=== PATIENT | male | born 1965 | race Caucasian/White ===

== ENCOUNTER → 2018-04-21 09:02 | Outpatient (CLI) | payer OTHER, SELFPAY ==
[2018-04-21 09:51] LABS: Add Manual Diff / Slide Review NO; Basophils Percent Auto 1.1 % (0-2); Eosinophils Percent Auto 1.8 % (2-4); Hematocrit 43.8 % (41-53); Hemoglobin 15.3 g/dL (13.5-17.5); Mean Corpuscular HGB Conc 34.9 % (30-36); Mean Corpuscular Hemoglobin 31.2 PG (26-34); Mean Corpuscular Volume 89.5 fL (80-100); Monocytes Percent Auto 5.6 % (3-14); Neutrophils Absolute Auto 5200 /uL (3000-5900); Neutrophils Percent Auto 60.5 % (50-75); Platelet Count 249 X10^3/uL (150-400); Red Cell Distribution Width 13.3 % (11.6-14.8); White Blood Cell Count 8.6 X10^3/uL (4.5-11.0)
[2018-04-21 09:52] LABS: Alanine Aminotransferase 30 IU/L (21-72); Albumin 5.1 g/dL (3.5-5.0); Albumin Globulin Ratio 1.6 (1.0-2.8); Alkaline Phosphatase 59 U/L (38-126); Aspartate Aminotransferase 28 IU/L (17-59); BUN Creatinine Ratio 22.5 (6-22); Bilirubin Total 0.6 mg/dL (0.2-1.3); Blood Urea Nitrogen 18 mg/dL (9-20); Calcium 9.7 mg/dL (8.4-10.2); Carbon Dioxide 30 mmol/L (22-32); Chloride 98 mmol/L (98-107); Cholesterol 186 mg/dL (140-199); Estimated Glomerular Filt Rate > 60.0 mL/min (>60); Globulin 3.2 g/dL (1.7-4.1); Glucose 121 mg/dL (70-100); HDL Cholesterol 55 mg/dL (40-60); HEMOLYSIS < 15 (0-50); LDL Cholesterol Calculated 96 mg/dL (<100); Potassium 3.8 mmol/L (3.4-5.1); Sodium 146 mmol/L (137-145); Total Protein 8.3 g/dL (6.3-8.2); Triglycerides 175 mg/dL (35-150)
[2018-04-21 10:01] LABS: Hemoglobin A1C% w Est Avg Glu 6.9 % (4.0-6.0)
== END ==
PROVIDERS: PCP Internal Medicine Infectious Disease; Visit Provider Internal Medicine
DX: Z79.4 Long term (current) use of insulin (principal); E11.8 Type 2 diabetes mellitus with unspecified complications; I10 Essential (primary) hypertension
CPT/HCPCS: 36415; 80053; 80061; 83036; 85025

== ENCOUNTER 2019-12-22 05:40 | Observation (INO) | payer OTHER, SELFPAY ==
[2019-12-22] VITALS (13 sets, daily range): BP systolic 94–146; BP diastolic 38–77; PULSE 65–80; RESP 14–20; TEMP 36.3–37.3; O2SAT 94–100; BMI 36.3
--- NOTE | 2019-12-22 05:44 | ED_ITS ---
HPI - Syncope General Chief Complaint: Syncope Stated Complaint: lethargic, sweating passed out on 20 day fast Time Seen by Provider: 12/22/19 05:44 Source: patient and family Mode of arrival: Ambulatory Limitations: no limitations History of Present Illness HPI narrative: 54M non smoker with HTN presents with multiple near syncopal episodes over the past day or two. He denies any injury as a consequence of these near syncopal episodes. He states that he can feel them coming on and they often happen with change in position. He is 20 days in to a liquid fast for weight loss reasons and states that though he has done fasting before he has never been this strict. He states that he continues to take his medications as prescribed but has been getting some burning in his stomach which has made it harder to drink as much is his fasting plan calls for. He denies any chest pain or shortness of breath. He denies any abdominal pain or diarrhea. He states that he has been urinating less than normal. MD complaint: felt faint and almost passed out Onset (ago): day(s) Prodromal symptoms: lightheaded Injuries sustained associated with event: none Current symptoms: lightheaded Related Data Home Medications Medication Instructions Recorded Confirmed Lisinopril/HCTZ (PRINZIDE) 1 tab PO QDAY #0 12/10/12 amlodipine [Norvasc] 10 mg PO QDAY #0 12/10/12 gabapentin [Neurontin] 300 mg PO QID #0 12/10/12 glimepiride [Amaryl] 2 mg PO Q DAY #0 12/10/12 methocarbamol [Robaxin-750] 750 mg PO PRN #1 12/10/12 oxycodone-acetaminophen [Percocet] 2 tab PO Q4HP #0 12/10/12 phentermine 15 mg PO Q DAY #0 12/10/12 Allergies Allergy/AdvReac Type Severity Reaction Status Date / Time No Known Allergies Allergy Uncoded 02/14/18 11:57 Review of Systems Constitutional Constitutional: Denies chills, Denies fatigue, Denies fever(s), Denies frequent falls, Denies lethargy and Denies weakness Eyes Eyes: Denies change in vision, Denies eye discharge, Denies irritation and Denies loss of vision ENT Ears, Nose, Mouth, and Throat: Denies change in voice, Denies dizziness, Denies neck pain, Denies sore throat and Denies throat swelling Cardiovascular Cardiovascular: Denies chest pain, Denies irregular heart rhythm, Denies lightheadedness, Denies palpitations, Denies dyspnea, Denies dyspnea on exertion and Denies orthopnea Comments: Near syncope Respiratory Respiratory: Denies cough, Denies dyspnea, Denies dyspnea on exertion and Denies wheezing Gastrointestinal Gastrointestinal: Denies abdominal pain, Denies change in bowel habits, Denies diarrhea, Denies nausea and Denies vomiting Genitourinary Genitourinary: Denies hematuria, Denies flank pain, Denies urinary incontinence and Denies urinary urgency Musculoskeletal Musculoskeletal: Denies back pain, Denies muscle weakness, Denies neck pain, Denies numbness and Denies tingling Integumentary/Breasts Skin/Breast: Denies pruritus, Denies erythema, Denies rash and Denies wounds Neurologic Neurologic: Denies behavioral changes, Denies confusion, Denies dizziness, Denies frequent falls, Denies loss of vision, Denies numbness, Denies tingling and Denies weakness Psychiatric Psychiatric: Denies anxiety, Denies behavioral changes, Denies confusion, Denies depression, Denies homicidal ideation and Denies suicidal ideation Endocrine Endocrine: Denies fatigue, Denies flushing and Denies palpitations Hematologic/Lymphatic Hematologic/Lymphatic: Denies easy bruising Allergic/Immunologic Allergic/Immunologic: Denies urticaria, Denies throat swelling and Denies wheezing Exam Narrative Exam Narrative: GENERAL: [54] year old patient appears stated age. Well- nourished, well-developed patient, in mild distress. HEAD: Atraumatic. Normocephalic. EYES: Pupils equal round and reactive. Extraocular motions intact. No scleral icterus. No injection or drainage. ENT: Nose without bleeding, purulent drainage. Throat without erythema, tonsillar hypertrophy or exudate. Airway patent. NECK: Trachea midline. Non tender CARDIOVASCULAR: Regular rate and rhythm without murmurs, gallops, or rubs. RESPIRATORY: Clear to auscultation. Breath sounds equal bilaterally. No wheezes, rales, or rhonchi. GASTROINTESTINAL: Abdomen soft, non-tender, nondistended. EXTREMITIES: No edema or joint tenderness. BACK: Nontender without deformity or crepitance. No flank tenderness. NEURO: AOx3. SKIN: No rash or erythema of visible areas Initial Vital Signs Initial Vital Signs: Vital Signs Temperature 98.0 F 12/22/19 05:40 Pulse Rate 77 12/22/19 05:40 Respiratory Rate 16 12/22/19 05:40 Blood Pressure 99/52 L 12/22/19 05:40 Pulse Oximetry 98 12/22/19 05:40 Course Course Course Narrative: patient took own Morphine Sulfate 15mg PO and Gabapentin 600mg PO Orders Ordered: ED Orders 12/22/19 05:54 EKG-12 Lead Stat 12/22/19 05:55 Complete Blood Count AUTO DIFF Stat Comprehensive Metabolic Panel Stat Ketones (Beta-Hydroxybutyrate) Stat Magnesium Stat Potassium Chloride 80 meq/ (Sodium Chloride) 1,040 mls @ 130 mls/hr IV NOW ONE Stop: 12/22/19 14:30 Last Admin: 12/22/19 06:49 Dose: 130 mls/hr Documented by: ARVIND Cosigned by: PABLO Discontinued Medications Sodium Chloride (Normal Saline 0.9%) 1,000 mls @ 1,000 mls/hr IV BOLUS ONE Stop: 12/22/19 06:52 Last Admin: 12/22/19 06:32 Dose: 1,000 mls/hr Documented by: ARVIND Vital Signs Vital signs: Vital Signs - 8 hr 12/22/19 05:40 12/22/19 06:45 Temperature 98.0 F Pulse Rate 77 65 Respiratory Rate 16 15 Blood Pressure 99/52 L Blood Pressure [Right Arm] 94/53 L Pulse Oximetry 98 97 MDM - Syncope Lab Data Result diagrams: 12/22/19 05:55 12/22/19 05:55 Labs: Lab Results 12/22/19 12/22/19 12/22/19 Range/Units 05:55 05:55 05:55 WBC 8.7 (4.5-11.0) X10^3/uL RBC 5.17 (4.5-5.9) X10^6/uL Hgb 16.1 (13.5-17.5) g/dL Hct 42.6 (41-53) % MCV 82.4 (80-100) fL MCH 31.2 (26-34) PG MCHC 37.9 H (30-36) % RDW 12.4 (11.6-14.8) % Plt Count 239 (150-400) X10^3/uL Neut % (Auto) 69.5 (50-75) % Lymph % (Auto) 18.4 L (25-40) % [place] % (Auto) 11.5 (3-14) % Eos % (Auto) 0.3 L (2-4) % Baso % (Auto) 0.3 (0-2) % Neut # (Auto) 6000 (5002-2184) /uL Lymph # (Auto) 1600 (8488-1025) /uL [place] # (Auto) 1000 H (0-900) /uL Eos # (Auto) 0 (0-450) /uL Baso # (Auto) 0 (0-100) /uL Sodium 116 L* (137-145) mmol/L Potassium 2.3 L* (3.4-5.1) mmol/L Chloride 57 L* (98-107) mmol/L Carbon Dioxide 37 H (22-32) mmol/L BUN 10 (9-20) mg/dL Creatinine 1.40 H (0.66-1.25) mg/dL Estimated GFR 52.4 L (>60) mL/min BUN/Creatinine Ratio 7.1 (6-22) Glucose 155 H (70-100) mg/dL Calcium 9.1 (8.4-10.2) mg/dL Magnesium 1.6 (1.6-2.3) mg/dL Total Bilirubin 1.4 H (0.2-1.3) mg/dL AST 93 H (17-59) IU/L ALT 49 (<50) IU/L Alkaline Phosphatase 63 (38-126) U/L Total Protein 7.9 (6.3-8.2) g/dL Albumin 4.9 (3.5-5.0) g/dL Globulin 3.0 (1.7-4.1) g/dL Albumin/Globulin Ratio 1.6 (1.0-2.8) Ketones 7.44 H (<0.27) mmol/L Point of Care Testing Glucose POC 146 Discharge Plan Departure Patient Disposition: Admitted As Inpatient Clinical Impression: Dehydration, Acute kidney injury, Acute hypokalemia, Acute hyponatremia Referrals: Saqib Bonner DO [Primary Care Provider] - Admit Date/Time: 12/22/19 07:56 Admit Provider: Tika Duong
[2019-12-22 06:19] LABS: Alanine Aminotransferase 49 IU/L (<50); Albumin 4.9 g/dL (3.5-5.0); Albumin Globulin Ratio 1.6 (1.0-2.8); Alkaline Phosphatase 63 U/L (38-126); Aspartate Aminotransferase 93 IU/L (17-59); BUN Creatinine Ratio 7.1 (6-22); Bilirubin Total 1.4 mg/dL (0.2-1.3); Blood Urea Nitrogen 10 mg/dL (9-20); Calcium 9.1 mg/dL (8.4-10.2); Carbon Dioxide 37 mmol/L (22-32); Estimated Glomerular Filt Rate 52.4 mL/min (>60); Glucose 155 mg/dL (70-100); HEMOLYSIS 25 (0-50); Total Protein 7.9 g/dL (6.3-8.2)
[2019-12-22 06:29] LABS: Potassium 2.3 mmol/L (3.4-5.1); Sodium 116 mmol/L (137-145)
[2019-12-22 06:30] LABS: Chloride 57 mmol/L (98-107)
[2019-12-22 06:31] LABS: Ketones (Beta-Hydroxybutyrate) 7.44 mmol/L (<0.27)
[2019-12-22] MEDS: SODIUM CHLORIDE 0.9% 1,000 ML 1000 ML IV (06:32)
[2019-12-22] MEDS: POTASSIUM CHLORIDE 80 MEQ in SODIUM CHLORIDE 0.9% 1,000 ML 130 ML IV ×2 (06:49→20:40)
[2019-12-22 07:02] LABS: Add Manual Diff / Slide Review NO; Basophils Absolute Auto 0 /uL (0-100); Basophils Percent Auto 0.3 % (0-2); Eosinophils Absolute Auto 0 /uL (0-450); Eosinophils Percent Auto 0.3 % (2-4); Hematocrit 42.6 % (41-53); Hemoglobin 16.1 g/dL (13.5-17.5); Lymphocytes Absolute Auto 1600 /uL (1100-4500); Lymphocytes Percent Auto 18.4 % (25-40); Mean Corpuscular Hemoglobin 31.2 PG (26-34); Mean Corpuscular Volume 82.4 fL (80-100); Monocytes Absolute Auto 1000 /uL (0-900); Monocytes Percent Auto 11.5 % (3-14); Neutrophils Absolute Auto 6000 /uL (1500-7000); Neutrophils Percent Auto 69.5 % (50-75); Platelet Count 239 X10^3/uL (150-400); Red Blood Cell Count 5.17 X10^6/uL (4.5-5.9); Red Cell Distribution Width 12.4 % (11.6-14.8); White Blood Cell Count 8.7 X10^3/uL (4.5-11.0)
[2019-12-22 07:03] LABS: Mean Corpuscular HGB Conc 37.9 % (30-36)
[2019-12-22 07:49] LABS: Magnesium 1.6 mg/dL (1.6-2.3)
[2019-12-22 09:24] LABS: Hemoglobin A1C% w Est Avg Glu 9.3 % (4.0-6.0)
[2019-12-22] MEDS: HEPARIN 5,000 UNIT/ML VIAL 5000 UNIT SUBCUT ×2 (10:42→20:43)
[2019-12-22] MEDS: SODIUM CHLORIDE 0.9% 1,000 ML 100 ML IV (10:47)
--- NOTE | 2019-12-22 13:00 | PM.HP.1 ---
History of Present Illness History of Present Illness Date Patient Seen: 12/22/19 Chief complaint: lethargic, sweating passed out on 20 day fast Narrative: Booker Zimmerman is a 54-year-old male with past medical history significant for diabetes mellitus type 2, non-insulin using, hypertension and chronic back pain with opiate dependence and a back stimulator who presented to the ED for near syncopal episode. The patient reports he was getting ready for work and was just laying there on his bed not wanting to get up. He endorses fatigue and weakness. He then reports he got up then fell to the floor and was shaking because it ?felt better.? He denies any injury as a consequence of these near syncopal episodes. He denies bowel or bladder incontinence and he did not bite his tongue. The patient has been pursuing a liquid fast as part of a weight loss program for a competition at work. He has previously fasted in the past which he reports put his diabetes in remission. The patient reports he is not on any medications for his diabetes and has refused that he has diabetes to nursing staff. The patient denies headache, vision changes, lightheadedness or dizziness, palpitations, chest pain, shortness of breath, fever, chills, dysuria, diarrhea or constipation. He does endorse decreased urinary output and mild abdominal burning due to taking his medications on an empty stomach with associated nausea and 1 episode of vomiting last week. The patient reports that he has not had a BM since 12/02/2019. ED course: The patient was found to be dehydrated with acute kidney injury and severe hyponatremic (Na 116) and hypokalemic (K 2.3). The patient was admitted for rehydration and correction of electrolytes. Patient History Medical History (Updated 12/22/19 @ 16:47 by Tika Duong DO) Chronic back pain (Acute) Diabetes mellitus type 2 in obese (Acute) Hypertension (Acute) Opiate dependence (Acute) Surgical History (Updated 12/22/19 @ 16:47 by Tika Duong DO) History of appendectomy (Acute) History of lumbar fusion (Acute) Family & Social History Family History (Updated 12/22/19 @ 16:49 by Tika Duong DO) Mother Diabetes mellitus Heart disease Father Diabetes mellitus Heart disease Brother Diabetes mellitus Heart disease Hx of CABG Brother Lung cancer Sister Unknown family medical history Social History: household members spouse,children Prior Living Arrangements House Safety & Behavioral: Feels Safe in Current Yes Environment Been Physically Hurt or No Threatened By a Person Suicidal Ideation Description None Suicide Plan Description No Plan Tobacco & Substance use: Smoking Status Never smoker alcohol intake never The patient has been for 31 years. He has 2 biological children who are healthy. 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 He occasionally drinks alcohol such as a beer every 6 months. He is a former smoker 1 pack per day x6 years. He currently chews tobacco. He does not use any recreational drugs. Meds Home Medications and Allergies Home Medications Medication Instructions Recorded Confirmed Type amlodipine 5 mg PO DAILY 12/22/19 12/22/19 History gabapentin 600 mg PO TID 12/22/19 12/22/19 History hydrochlorothiazide 25 mg PO DAILY 12/22/19 12/22/19 History lisinopril 20 mg PO DAILY 12/22/19 12/22/19 History meloxicam 7.5 mg PO DAILY 12/22/19 12/22/19 History morphine 15 mg PO Q4-6H PRN 12/22/19 12/22/19 History tizanidine 4 mg Q3H 12/22/19 12/22/19 History Allergies Allergy/AdvReac Type Severity Reaction Status Date / Time No Known Drug Allergies Allergy Verified 12/22/19 09:22 Review of Systems Review of Systems Narrative: A 10 system comprehensive review of systems was conducted with the patient and found to be negative except as above in the History of Present Illness. Exam Vital Signs (past 8 hours): - 12/22/19 05:40 12/22/19 06:45 12/22/19 07:00 Temperature 98.0 F Pulse Rate 77 65 68 Respiratory Rate 16 15 14 Blood Pressure 99/52 L Blood Pressure [Right Arm] 94/53 L 109/52 L Pulse Oximetry 98 97 98 12/22/19 08:00 12/22/19 08:41 12/22/19 12:00 Temperature 97.4 F L 98.6 F Pulse Rate 73 71 72 Respiratory Rate 14 16 17 Blood Pressure 129/60 125/68 125/71 Blood Pressure [Right Arm] Pulse Oximetry 98 100 100 Oxygen Delivery Method Room Air Oxygen Flow Rate 0 Narrative Exam Narrative: General: Middle-aged gentleman sitting in bedside chair in no acute distress, well-developed, well-nourished, slightly irritable but otherwise appropriately interactive. HEENT: Normocephalic, atraumatic. External ears without defect. Pupils equal, round, and reactive to light. Anicteric sclerae, moist conjunctivae, and no lid lag. Oropharynx free of erythema and cobble stoning with moist mucosa. Neck: Supple with full range of motion. No jugular venous distension. No lymphadenopathy or thyromegaly. Cardiovascular: Regular rate and rhythm without murmurs, rubs, or gallops appreciated. Pulmonary: Clear to auscultation bilaterally without crackles, wheezes, or rhonchi. Normal respiratory effort with no use of accessory muscles. Abdomen: Soft, obese, bowel sounds present, nontender, nondistended. No hepatosplenomegaly or masses appreciated. Back stimulator in place and low lumbar spine. Extremities: No clubbing, cyanosis, or edema. Skin: Normal temperature, turgor, and texture; no rash, ulcers, or subcutaneous nodules appreciated. Neurological: Cranial nerves grossly intact. Psychiatric: Slightly irritable mood and normal affect. Alert and oriented to person, place, and time. Objective Labs Result Diagrams: 12/22/19 05:55 12/22/19 05:55 Labs: Laboratory Results - last 24 hr 12/22/19 12/22/19 12/22/19 05:55 05:55 05:55 WBC 8.7 RBC 5.17 Hgb 16.1 Hct 42.6 MCV 82.4 MCH 31.2 MCHC 37.9 H RDW 12.4 Plt Count 239 Neut % (Auto) 69.5 Lymph % (Auto) 18.4 L [place] % (Auto) 11.5 Eos % (Auto) 0.3 L Baso % (Auto) 0.3 Neut # (Auto) 6000 Lymph # (Auto) 1600 [place] # (Auto) 1000 H Eos # (Auto) 0 Baso # (Auto) 0 Sodium 116 L* Potassium 2.3 L* Chloride 57 L* Carbon Dioxide 37 H BUN 10 Creatinine 1.40 H Estimated GFR 52.4 L BUN/Creatinine Ratio 7.1 Glucose 155 H Hemoglobin A1c Calcium 9.1 Magnesium 1.6 Total Bilirubin 1.4 H AST 93 H ALT 49 Alkaline Phosphatase 63 Total Protein 7.9 Albumin 4.9 Globulin 3.0 Albumin/Globulin Ratio 1.6 Ketones 7.44 H 12/22/19 05:55 WBC RBC Hgb Hct MCV MCH MCHC RDW Plt Count Neut % (Auto) Lymph % (Auto) [place] % (Auto) Eos % (Auto) Baso % (Auto) Neut # (Auto) Lymph # (Auto) [place] # (Auto) Eos # (Auto) Baso # (Auto) Sodium Potassium Chloride Carbon Dioxide BUN Creatinine Estimated GFR BUN/Creatinine Ratio Glucose Hemoglobin A1c 9.3 H Calcium Magnesium Total Bilirubin AST ALT Alkaline Phosphatase Total Protein Albumin Globulin Albumin/Globulin Ratio Ketones Assessment & Plan Assessment & Plan narrative: Booker Zimmerman is a 54-year-old male with past medical history significant for diabetes mellitus type 2, non-insulin using, hypertension and chronic back pain with opiate dependence and a back stimulator who presented to the ED for multiple near syncopal episodes over the last 2 days. 1. Acute near syncopal episode, secondary to dehydration, present on admission. Resolved. -Patient had near syncopal episode which occurred with change of position. Patient did not sustain injury with a controlled fall to floor and no loss of consciousness. -Ketone level 7.44. -Continue IV fluid hydration as below. -Orthostatic blood pressures positive. Continue orthostatic blood pressure measurements every shift. 2. Acute severe hyponatremia, present on admission. Active. -Initial sodium level 116. -Held hydrochlorothiazide. -Received 1 L NS in ED. Continue normal saline at 100 mL/hr. Do not want to increase sodium more than 9 mmol/L in 24 hour period to avoid central pontine myelinolysis. -Continue to monitor sodium level twice daily and adjust IV fluids as appropriate. 3. Acute severe hypokalemia, present on admission. Active. -Initial potassium level 2.3. Received potassium chloride 80 mEq IV x1 in ED. -Plan to repeat potassium level this evening and will continue to replete as necessary. 4. Acute kidney injury, present on admission. Active. -Initial creatinine 1.4. Baseline creatinine 0.80 in 04/2018. -Avoid nephrotoxin agents and optimize renal perfusion. -Received 1 L NS in ED. Continue normal saline at 100 mL/hr as above. -Continue to monitor renal function daily. 5. Diabetes mellitus type 2, non-insulin using, chronic, present on admission. Stable. -Hemoglobin A1c 9.3% indicative of poor glycemic control. -Patient currently does not take any medications to treat his diabetes. -Continue ACHS blood glucose checks and low-dose correctional scale insulin. -Start and continue Lantus 10 units daily at bedtime. Consider starting at metformin previous to time of discharge. 6. Hypertension, chronic, present on admission. Stable. -Continue amlodipine 5 mg daily and lisinopril 20 mg daily. Held hydrochlorothiazide due to hyponatremia as above. 7. Chronic back pain with opiate dependence and back stimulator, present on admission. Stable. -Continue home regimen of morphine IR 15 mg every 4 hours as needed for back pain, tizanidine 4 mg 3 times daily as needed for muscle spasm, meloxicam 7.5 mg daily and gabapentin 600 mg 3 times daily. Code status: Full code. Does not raise his spouse as surrogate decision maker. DVT prophylaxis: SQ Heparin Patient is admitted under inpatient status with expected length of stay greater than 2 midnights due to severity of presenting symptoms, risk of adverse event, and complexity of treatment plan.
[2019-12-22] MEDS: GABAPENTIN 300 MG CAPSULE PO (13:32)
[2019-12-22] MEDS: OXYCODONE/ACETAMINOPHEN 5/325 TABLET 2 TAB PO (13:32)
--- NOTE | 2019-12-22 14:13 | PC.NURSE ---
Shift summary: Patient was admitted this morning from ED to room 224, oriented to room and call light. Requesting to sit up in chair, put on his own pajamas, chair alarm in place. Patient tolerating standby assistance to bathroom. Initially reported some hesitancy with voiding, but reported second time voiding was much better. IV fluids infusing as ordered. Patient denies lightheadedness. Patient refused SSI as ordered with lunch, but tolerated his heart healthy/diabetic diet, denies n/v. Call light within reach.
[2019-12-22] MEDS: MELOXICAM 7.5 MG TABLET PO (15:34)
[2019-12-22] MEDS: GABAPENTIN 600 MG TABLET PO ×2 (15:34→20:42)
--- NOTE | 2019-12-22 16:08 | PC.NURSE ---
Addendum entered by Nidia Lechuga R.N. 12/22/19 23:30: Krider infusing as ordered to pt's peripheral iv site without difficulty. Up in recliner with own lounging clothes on and hospital gown. Moves independently in room straightening bed, blankets, etc. Witnessed as safe up on feet. Blood sugar 107 @ hs. Snack provided with lantus insulin. Addendum entered by Nidia Lechuga R.N. 12/22/19 20:31: Awaiting potassium rider verification by distance pharmacist. Addendum entered by Nidia Lechuga R.N. 12/22/19 19:27: Zoila in lab reports to this manual writer via telephone this evening's critical values have been reported directly to Dr. Duong. Addendum entered by Nidia Lechuga R.N. 12/22/19 18:52: Remains up in chair visiting with family members. Able to move all extremities independently and advocate for self. Compliant with care. Original Note: Dr. Duong sees pt at beginning of shift. Pt is up in chair with alarm in place. Spouse is present. Pt reports back pain 7/10 which is chronic in nature and baseline for pt. Given meds as per pt request and emar. Reports neuropathy to feet BL r/t diabetes as per dayshift. Pt wearing own socks and shoes @ this time so will assess at a later time. Clear breath sounds throughout all lung lagos. HR regular. Denies any abdominal complaints or symptoms. Spouse orders pt's dinner and was educated on carbohydrate consistent diet for food choices.
[2019-12-22] MEDS: TIZANIDINE 4 MG TABLET PO ×2 (16:32→20:42)
[2019-12-22] MEDS: MORPHINE IR 15 MG TABLET PO ×2 (16:32→20:42)
[2019-12-22] MEDS: INSULIN ASPART 100 UNIT/ML INSULN PEN SUBCUT (17:10)
[2019-12-22 18:52] LABS: BUN Creatinine Ratio 9.2 (6-22); Blood Urea Nitrogen 11 mg/dL (9-20); Calcium 8.1 mg/dL (8.4-10.2); Estimated Glomerular Filt Rate > 60.0 mL/min (>60); Glucose 217 mg/dL (70-100); HEMOLYSIS < 15 (0-50); Potassium 2.9 mmol/L (3.4-5.1)
[2019-12-22 18:58] LABS: Carbon Dioxide 36 mmol/L (22-32)
[2019-12-22 19:10] LABS: Chloride 70 mmol/L (98-107); Sodium 119 mmol/L (137-145)
[2019-12-22] MEDS: ACETAMINOPHEN 325 MG TABLET 650 MG PO (20:42)
[2019-12-22] MEDS: INSULIN GLARGINE 100 UNIT/ML 3ML PEN 10 UNIT SUBCUT (21:18)
[2019-12-23] VITALS (14 sets, daily range): BP systolic 92–147; BP diastolic 48–100; PULSE 58–84; RESP 16–20; TEMP 35.9–36.4; O2SAT 95–97
[2019-12-23] MEDS: MORPHINE IR 15 MG TABLET PO ×6 (00:45→21:44)
[2019-12-23] MEDS: TIZANIDINE 4 MG TABLET PO ×3 (04:40→21:44)
[2019-12-23] MEDS: ACETAMINOPHEN 325 MG TABLET 650 MG PO (05:11)
[2019-12-23 05:34] LABS: Magnesium 1.7 mg/dL (1.6-2.3)
[2019-12-23 05:35] LABS: Alanine Aminotransferase 46 IU/L (<50); Albumin 4.5 g/dL (3.5-5.0); Albumin Globulin Ratio 1.5 (1.0-2.8); Alkaline Phosphatase 69 U/L (38-126); Aspartate Aminotransferase 67 IU/L (17-59); Bilirubin Total 0.8 mg/dL (0.2-1.3); Blood Urea Nitrogen 12 mg/dL (9-20); Calcium 8.5 mg/dL (8.4-10.2); Chloride 78 mmol/L (98-107); Estimated Glomerular Filt Rate > 60.0 mL/min (>60); Globulin 3.1 g/dL (1.7-4.1); Glucose 138 mg/dL (70-100); HEMOLYSIS < 15 (0-50); Potassium 3.5 mmol/L (3.4-5.1); Sodium 126 mmol/L (137-145); Total Protein 7.6 g/dL (6.3-8.2)
[2019-12-23 06:06] LABS: Carbon Dioxide 36 mmol/L (22-32)
[2019-12-23] MEDS: AMLODIPINE 5 MG TABLET PO (08:57)
[2019-12-23] MEDS: MELOXICAM 7.5 MG TABLET PO (08:57)
[2019-12-23] MEDS: lisinopriL 20 MG TABLET PO (08:57)
[2019-12-23] MEDS: GABAPENTIN 600 MG TABLET PO ×3 (08:57→21:44)
[2019-12-23] MEDS: HEPARIN 5,000 UNIT/ML VIAL 5000 UNIT SUBCUT ×2 (08:59→21:44)
--- NOTE | 2019-12-23 12:05 | CM.DANOTE ---
Patient is a 54 year old male who was admitted on 12/22/19 for Lethargic, passed out. Pt has PRE DIM for insurance and his PCP is Dr. Saqib Bonner. EMR was reviewed. Per MD, pt with poorly controlled diabetes and pt denying he has diabetes and admits to being on a 20 day fast without hardly any intake of any kind. Pt with unstable labs and order for [facility] Consult. Per Dietary, pt declines diabetes education and recommendations and continues to state that he is in remission and does not have diabetes despite his test results. Pt declines further education on this dx. Pt independent in his room and lives in [place] with his family and works at the local [employer] and is independent with ADL's at baseline and does not use equipment to ambulate. Plan: SW to follow for likely pt d/c home with family later today or likely tomorrow. SW to follow for any further identified discharge planning needs. 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 No Advance Directives on File No History Provided By Patient,Family Member,Medical Record Has Patient been admitted in last 30 No days? Prior Living Arrangements House Household Members spouse,children Type of transporation used prior to Drives own vehicle admit Comment Works at [employer]), Independent with ADL's at baseline Independent with ADL's Yes Is patient alert and oriented? Yes Barriers to Discharge No Discharge Plan Home Transportation Arrangement Family available to provide transport at d/c Referrals Initiated [facility] Additional Comment Pt refusing dietary education/ recommendations at this time Review Status In Process Please Provide Date Initial DC 12/23/19 Assessment Was Performed Next Review Type Continued Stay Review
[2019-12-23] MEDS: INSULIN ASPART 100 UNIT/ML INSULN PEN SUBCUT ×2 (12:14→17:20)
[2019-12-23] MEDS: POTASSIUM CHLORIDE 20 MEQ TAB 40 MEQ PO (12:14)
--- NOTE | 2019-12-23 12:24 | DIET.PN ---
Dietary Progress Note Assessment: Mr. Zimmerman is a 54 year old male who was admitted on 12/22/19 for Lethargic, passed out. Pt with poorly controlled diabetes and pt denying he has diabetes and reports being on a 20 day fast consuming water, tea, coffee and some broth. He states he has done this fast in the past with excellent results. He is seen by process engineering manager Dr. Payton at [facility]. We discussed his current laboratory results but continues to state that he is in remission and does not have diabetes despite these results. He does not currently monitor is BG reporting he does not need to. POC glucose tested during my assessment at 176. He agrees this is elevated. He is following the fast recommended by Dr. Dwayne Holguin, insert operator, who discusses a Therapeutic Fasting Program for Controlling Diabetes and Weight Loss. He has experienced some N/V related to taking meds on an empty stomach. He reports no BM since end november. Pt reports this RD is trying to pick a fight with him while discussing labs and trying to understand his eating habits. He is not interested in further diabetes education and recommendations. HT: 177.8 cm WT:114.8kg UBW: 131.8kg (Nov 2019) %change: 12.9 BMI: 36.3 Labs: On admission Na: 116 K: 2.3 Chl: 57 Gluc: 155,217,138,176 A1c: 9.3 AST: 93 MNA: 9 [place]: 20 PO's: 100% (12/22) Nutrition Diagnosis: Altered Nutrition related labs related to impaired glucose metabolism, lack of previous exposure to accurate nutrition information as evidenced by pt report, dx of diabetes, previous diet high in refined carbohydrates, not ready for diet/lifestyle change. Interventions: 1. Provided information on diabetes and carbohydrate counting for glucose control. 2. Discussed importance of nutrition for homeostasis and electrolyte balance and energy. Patient resistant to education. 3. Provided information on ONS ensure max for protein needs with limited CHO and calories. Pt denies. 4. Provided pamphlet on [facility] Diabetes Education Program. Recommended pt discuss with provider and left contact information for further discussion. Diet Order: Heart healthy, CCD 2 (small) EER: 2200 michelle @ 30cal/kg IBW; Pro: 109g @ 1.5g/kg IBW Monitoring/Evaluations: Labs, PO's, Wt
[2019-12-23] MEDS: SODIUM CHLORIDE 0.9% 1,000 ML 100 ML IV (13:10)
--- NOTE | 2019-12-23 14:42 | PM.PN.1 ---
Subjective Subjective Date Patient Seen: 12/23/19 Interval history: Booker Zimmerman is a 54-year-old male with past medical history significant for diabetes mellitus type 2, non-insulin using, hypertension and chronic back pain with opiate dependence and a back stimulator who presented to the ED for multiple near syncopal episodes over the last 2 days. The patient is resting in bedside chair comfortably. He denies headache, lightheadedness or dizziness, vision changes, shortness of breath, chest pain, palpitations, abdominal pain, nausea, vomiting, fever, chills, dysuria, diarrhea or constipation. He is voiding without difficulty. He has not yet had a bowel movement since admission. He is up ambulating without or with assistance. Exam Vital Signs (past 8 hours): - 12/23/19 07:31 12/23/19 08:44 12/23/19 11:00 Temperature 97.6 F Pulse Rate 58 L Pulse Rate [Orthostatic Lying] 68 Pulse Rate [Orthostatic Sitting] 75 Pulse Rate [Orthostatic Standing] 69 Respiratory Rate 18 Blood Pressure 121/73 Blood Pressure [Orthostatic Lying] 128/79 Blood Pressure [Orthostatic Sitting] 147/100 H Blood Pressure [Orthostatic Standing] 142/82 H Pulse Oximetry 97 96 12/23/19 11:10 12/23/19 13:10 Temperature 97.6 F Pulse Rate 68 Pulse Rate [Orthostatic Lying] Pulse Rate [Orthostatic Sitting] Pulse Rate [Orthostatic Standing] Respiratory Rate 16 Blood Pressure 128/79 Blood Pressure [Orthostatic Lying] Blood Pressure [Orthostatic Sitting] Blood Pressure [Orthostatic Standing] Pulse Oximetry 96 96 Oxygen Delivery Method Room Air Oxygen Flow Rate 0 Narrative Exam Narrative: General: Middle-aged gentleman sitting in bedside chair in no acute distress, well-developed, well-nourished, slightly irritable but otherwise appropriately interactive. HEENT: Normocephalic, atraumatic. External ears without defect. Pupils equal, round, and reactive to light. Anicteric sclerae, moist conjunctivae, and no lid lag. Oropharynx free of erythema and cobble stoning with moist mucosa. Neck: Supple with full range of motion. No jugular venous distension. No lymphadenopathy or thyromegaly. Cardiovascular: Regular rate and rhythm without murmurs, rubs, or gallops appreciated. Pulmonary: Clear to auscultation bilaterally without crackles, wheezes, or rhonchi. Normal respiratory effort with no use of accessory muscles. Abdomen: Soft, obese, bowel sounds present, nontender, nondistended. No hepatosplenomegaly or masses appreciated. Back stimulator in place and low lumbar spine. Extremities: No clubbing, cyanosis, or edema. Skin: Normal temperature, turgor, and texture; no rash, ulcers, or subcutaneous nodules appreciated. Neurological: Cranial nerves grossly intact. Psychiatric: Slightly irritable mood and flat affect. Alert and oriented to person, place, and time. Objective Labs Result Diagrams: 12/22/19 05:55 12/23/19 04:55 Labs: Laboratory Results - last 24 hr 12/22/19 12/23/19 12/23/19 18:30 04:55 04:55 Sodium 119 L* 126 L Potassium 2.9 L 3.5 Chloride 70 L* 78 L Carbon Dioxide 36 H 36 H BUN 11 12 Creatinine 1.20 1.20 Estimated GFR > 60.0 > 60.0 BUN/Creatinine Ratio 9.2 10.0 Glucose 217 H 138 H Calcium 8.1 L 8.5 Magnesium 1.7 Total Bilirubin 0.8 AST 67 H ALT 46 Alkaline Phosphatase 69 Total Protein 7.6 Albumin 4.5 Globulin 3.1 Albumin/Globulin Ratio 1.5 Assessment & Plan Assessment & Plan narrative: Booker Zimmerman is a 54-year-old male with past medical history significant for diabetes mellitus type 2, non-insulin using, hypertension and chronic back pain with opiate dependence and a back stimulator who presented to the ED for multiple near syncopal episodes over the last 2 days. 1. Acute near syncopal episode, secondary to dehydration, present on admission. Resolved. -Patient had near syncopal episode which occurred with change of position. Patient did not sustain injury with a controlled fall to floor and no loss of consciousness. -Ketone level 7.44. -Continue IV fluid hydration as below. -Orthostatic blood pressures positive on admission and resolved with IV fluid hydration. 2. Acute severe hyponatremia, present on admission. Active. -Initial sodium level 116. Sodium has improved to 126. -Held hydrochlorothiazide. -Received 1 L NS in ED. Continue normal saline at 100 mL/hr which was held for 4 hours to avoid too rapid repletion. Do not want to increase sodium more than 9 mmol/L in 24 hour period to avoid central pontine myelinolysis. -Continue to monitor sodium level closely and adjust IV fluids as appropriate. 3. Acute severe hypokalemia, present on admission. Resolved. -Initial potassium level 2.3. Received potassium chloride 80 mEq IV x2. Potassium level now 3.5. Plan to give additional potassium chloride 40 mEq PO x1. -Monitored closely on telemetry then discontinue once potassium level within normal limits and sodium level improved. -Continue to monitor potassium level and replete as necessary. 4. Acute kidney injury, present on admission. Active. -Initial creatinine 1.4. Baseline creatinine 0.80 in 04/2018. Creatinine trending down and normalized at 1.2. -Avoid nephrotoxic agents and optimize renal perfusion. -Received 1 L NS in ED. Continue normal saline at 100 mL/hr as above. -Continue to monitor renal function daily. 5. Diabetes mellitus type 2, non-insulin using, chronic, present on admission. Stable. -Hemoglobin A1c 9.3% indicative of poor glycemic control. -Patient currently does not take any medications to treat his diabetes. -Continue [facility] blood glucose checks and low-dose correctional scale insulin. -Continue Lantus 10 units daily at bedtime. -Started metformin XR 500 mg daily at 1700 as patient has had associated side effect (does not remember exact side effect) in the past and will slowly titrate up if tolerated well.. 6. Hypertension, chronic, present on admission. Stable. -Continue amlodipine 5 mg daily and lisinopril 20 mg daily. Held hydrochlorothiazide due to hyponatremia as above. 7. Chronic back pain with opiate dependence and back stimulator, present on admission. Stable. -Continue home regimen of morphine IR 15 mg every 4 hours as needed for back pain, tizanidine 4 mg 3 times daily as needed for muscle spasm, meloxicam 7.5 mg daily and gabapentin 600 mg 3 times daily. Code status: Full code. Does not raise his spouse as surrogate decision maker. DVT prophylaxis: SQ Heparin Disposition: Patient likely to discharge home tomorrow once sodium level has significantly improved or normalized.
[2019-12-23] MEDS: METFORMIN XR 500 MG TABLET PO (17:20)
[2019-12-24] VITALS: RESP 15; O2SAT 95
[2019-12-24 00:10] VITALS: BP 126/63; PULSE 72; RESP 12; TEMP 36.8; O2SAT 94
--- NOTE | 2019-12-24 03:07 | PC.NURSE ---
PT WITH GUARDED BEHAVIOR TOWARD STAFF - ALMOST SUSPICIOUS OF THIS RN UPON INITIAL ASSESSMENT AND QUESTIONING- HIS BODY LANGUAGE IS DEFIANT AND HE IS SARCASTIC WITH HIS RESPONSES. EXPLAINED AT LENGTH TO BOTH PT AND HIS THE REASONING FOR CONTINUED MONITORING AND IVF WELL THE GOALS OF CARE- IS UNDERSTANDING AND CALM BUT PT IS RESISTANT. HE IS VOIDING FREQUENTLY PER URINAL AND LABS ARE IMPROVING- HE STILL CLAIMS DIABETES IS GONE SUPPORTIVE CARE GIVEN ALLOWED AND ENCOURAGED PT TO GET SOME REST HE LOOKS EXHAUSTED AND REPORTS HE USUALLY HAS NO PROBLEM SLEEPING- HE STATES THAT HE'S FINE AND HAS NOT REPORTED ANY NEED FOR X AT THIS TIME- PT REFUSED INITIAL ATTEMPT OF ORTHOSTATIC VS- SITTING UP IN CHAIR MOST OF THIS SHIFT THUS FAR
[2019-12-24 04:48] VITALS: O2SAT 94; O2SAT 95
[2019-12-24 05:05] VITALS: BP 157/103; PULSE 89; RESP 22; TEMP 36.9; O2SAT 99
[2019-12-24 05:10] VITALS: BP 160/91
[2019-12-24] MEDS: MORPHINE IR 15 MG TABLET PO (06:21)
[2019-12-24 07:10] LABS: BUN Creatinine Ratio 13.3 (6-22); Blood Urea Nitrogen 12 mg/dL (9-20); Calcium 8.9 mg/dL (8.4-10.2); Carbon Dioxide 29 mmol/L (22-32); Chloride 89 mmol/L (98-107); Estimated Glomerular Filt Rate > 60.0 mL/min (>60); Glucose 154 mg/dL (70-100); HEMOLYSIS < 15 (0-50); Magnesium 1.8 mg/dL (1.6-2.3); Potassium 3.3 mmol/L (3.4-5.1); Sodium 133 mmol/L (137-145)
[2019-12-24 07:51] VITALS: BP 165/91; PULSE 89; RESP 18; TEMP 37.2; O2SAT 100
[2019-12-24] MEDS: lisinopriL 20 MG TABLET PO (08:00)
[2019-12-24] MEDS: MELOXICAM 7.5 MG TABLET PO (08:00)
[2019-12-24] MEDS: POTASSIUM CHLORIDE 20 MEQ TAB 40 MEQ PO (08:01)
[2019-12-24] MEDS: AMLODIPINE 5 MG TABLET PO (08:01)
[2019-12-24] MEDS: HEPARIN 5,000 UNIT/ML VIAL 5000 UNIT SUBCUT (08:01)
[2019-12-24] MEDS: GABAPENTIN 600 MG TABLET PO (08:01)
--- NOTE | 2019-12-24 08:33 | P.DS_ITS ---
History of Present Illness History of Present Illness Chief complaint: lethargic, sweating passed out on 20 day fast Narrative: Written by myself Dr. Duong: Booker Zimmerman is a 54-year-old male with past medical history significant for diabetes mellitus type 2, non-insulin using, hypertension and chronic back pain with opiate dependence and a back stimulator who presented to the ED for near syncopal episode. The patient reports he was getting ready for work and was just laying there on his bed not wanting to get up. He endorses fatigue and weakness. He then reports he got up then fell to the floor and was shaking because it ?felt better.? He denies any injury as a consequence of these near syncopal episodes. He denies bowel or bladder incontinence and he did not bite his tongue. The patient has been pursuing a liquid fast as part of a weight loss program for a competition at work. He has previously fasted in the past which he reports put his diabetes in remission. The patient reports he is not on any medications for his diabetes and has refused that he has diabetes to nursing staff. The patient denies headache, vision changes, lightheadedness or dizziness, palpitations, chest pain, shortness of breath, fever, chills, dysuria, diarrhea or constipation. He does endorse decreased urinary output and mild abdominal burning due to taking his medications on an empty stomach with associated nausea and 1 episode of vomiting last week. The patient reports that he has not had a BM since 12/02/2019. ED course: The patient was found to be dehydrated with acute kidney injury and severe hyponatremic (Na 116) and hypokalemic (K 2.3). The patient was admitted for rehydration and correction of electrolytes. Discharge Providers Provider Date of admission: 12/22/19 07:56 Discharge Date: 12/24/19 Primary care physician: Saqib Bonner DO Consults: 12/22/19 09:06 Consult to Dietitian, Adult Routine Comment: Reason For Exam: patient on fasting/liquid diet for 20 days Discharge provider: Tika Duong DO Summary Hospital Course Discharge Diagnosis: 1. Acute near syncopal episode, secondary to dehydration, present on admission. Resolved. 2. Acute severe hyponatremia, present on admission. Active. 3. Acute severe hypokalemia, present on admission. Resolved. 4. Acute kidney injury, present on admission. Active. 5. Diabetes mellitus type 2, non-insulin using, chronic, present on admission. Stable. 6. Hypertension, chronic, present on admission. Stable. 7. Chronic back pain with opiate dependence and back stimulator, present on admission. Stable. Hospital Course: Booker Zimmerman is a 54-year-old male with past medical history significant for diabetes mellitus type 2, non-insulin using, hypertension and chronic back pain with opiate dependence and a back stimulator who presented to the ED for mult iple near syncopal episodes over the last 2 days. 1. Acute near syncopal episode, secondary to dehydration, present on admission. Resolved. -Patient had near syncopal episode which occurred with change of position. Patient did not sustain injury with a controlled fall to floor and no loss of consciousness. -Ketone level 7.44. -Continued IV fluid hydration as below. -Orthostatic blood pressures positive on admission and resolved with IV fluid hydration. 2. Acute severe hyponatremia, present on admission. Active. -Patient relatively asymptomatic other than fatigue and weakness. -Initial sodium level 116. Sodium improved to 119 then 126 over approximately 24 hours. Held IVF for 6 hours to avoid overly rapid correction and risk of osmotic demyelination syndrome then restarted normal saline 100 mL/hr. Sodium level now 133 and nearly normalized. -Discontinued hydrochlorothiazide until patient able to follow-up with PCP. -Continued to monitor sodium level closely. Recommend rechecking electrolytes in 3-5 days per PCP. 3. Acute severe hypokalemia, present on admission. Resolved. -Initial potassium level 2.3. Received potassium chloride 80 mEq IV x 2 and potassium chloride 40 mEq PO. Potassium level improved to 3.5 then dropped to 3.3 which was likely dilutional from IV fluids. Received additional potassium chloride 40 mEq PO x1. -Continued to monitor closely on telemetry. -Continued to monitor potassium level and replete as necessary. Recommend rechecking electrolytes in 3-5 days per PCP. 4. Acute kidney injury, present on admission. Active. -Initial creatinine 1.4. Baseline creatinine 0.80 in 04/2018. Creatinine trending down and normalized at 1.2. -Avoid nephrotoxic agents and optimize renal perfusion. -Received 1 L NS in ED. Continue normal saline at 100 mL/hr as above. -Continued to monitor renal function daily. 5. Diabetes mellitus type 2, non-insulin using, chronic, present on admission. Stable. -Hemoglobin A1c 9.3% indicative of poor glycemic control. Patient denied having diabetes multiple times to different staff including nursing and dietitian. -Patient currently does not take any medications to treat his diabetes. -Continued [facility] blood glucose checks and low-dose correctional scale insulin. -Continued Lantus 10 units daily at bedtime. -Started metformin XR 500 mg daily at 1700 which patient tolerated well and increased to 1000 mg daily at 1700. Recommend close outpatient follow-up with PCP for diabetic management. If patient tolerating metformin XR well could con manager housekeeping increasing to 2000 mg daily at 1700 and could consider adding additional anti-hyperglycemic medication and/or insulin. 6. Hypertension, chronic, present on admission. Stable. -Continued amlodipine 5 mg daily and lisinopril 20 mg daily. Held hydrochlorothiazide due to hyponatremia as above. 7. Chronic back pain with opiate dependence and back stimulator, present on admission. Stable. -Continued home regimen of morphine IR 15 mg every 4 hours as needed for back pain, tizanidine 4 mg 3 times daily as needed for muscle spasm, meloxicam 7.5 mg daily and gabapentin 600 mg 3 times daily. 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 Consider decreasing opiate and non-opiate medications. Exam Vital Signs (past 8 hours): - 12/24/19 04:48 12/24/19 05:05 12/24/19 05:10 Temperature 98.5 F Pulse Rate 89 Respiratory Rate 22 Blood Pressure 157/103 H 160/91 H Pulse Oximetry 95 99 Oxygen Delivery Method Room Air Oxygen Flow Rate 0 Narrative Exam Narrative: General: Middle-aged gentleman sitting in bedside chair in no acute distress, well-developed, well-nourished, slightly irritable but otherwise appropriately interactive. HEENT: Normocephalic, atraumatic. External ears without defect. Pupils equal, round, and reactive to light. Anicteric sclerae, moist conjunctivae, and no lid lag. Oropharynx free of erythema and cobble stoning with moist mucosa. Neck: Supple with full range of motion. No jugular venous distension. No lymphadenopathy or thyromegaly. Cardiovascular: Regular rate and rhythm without murmurs, rubs, or gallops appreciated. Pulmonary: Clear to auscultation bilaterally without crackles, wheezes, or rhonchi. Normal respiratory effort with no use of accessory muscles. Abdomen: Soft, obese, bowel sounds present, nontender, nondistended. No hepatosplenomegaly or masses appreciated. Back stimulator in place and low lumbar spine. Extremities: No clubbing, cyanosis, or edema. Skin: Normal temperature, turgor, and texture; no rash, ulcers, or subcutaneous nodules appreciated. Neurological: Cranial nerves grossly intact. Psychiatric: Apathetic and slightly irritable mood and flat affect. Alert and oriented to person, place, and time. Objective Labs Result Diagrams: 12/22/19 05:55 12/24/19 06:40 Labs: Laboratory Results - last 24 hr 12/24/19 06:40 Sodium 133 L Potassium 3.3 L Chloride 89 L Carbon Dioxide 29 BUN 12 Creatinine 0.90 Estimated GFR > 60.0 BUN/Creatinine Ratio 13.3 Glucose 154 H Calcium 8.9 Magnesium 1.8 Discharge Plan Discharge Plan Patient Disposition: Home Discharge comment: You are being discharged home. Please follow-up with your primary care physician, Dr. Nunez or 1 of her colleagues at the residency clinic, in the next 1 week regarding your hospitalization and repeat BMP. You have been prescribed metformin XR 1000 mg daily at dinner. Please keep a blood glucose log and monitor your blood glucose 4 times a day, including 1 measurement fasting and 3 measurements 2 hours after meals, and bring this to all of your doctor's appointments. It is imperative that we treat your diabetes to avoid complications until you have your diabetes in remission with diet. You may need to be on insulin if your blood glucose levels do not is substantially improve. Please do not liquid fast as you had life-threatening sodium and potassium deficiencies and kidney injury which have been treated and resolved. Recommend a Mediterranean diet or a diet low in carbohydrates and high in lean protein and vegetables. Please do not restart your hydrochlorothiazide until you follow-up with your primary care physician as this can contribute to low sodium. Discharge orders & Medications Prescriptions: New metformin 1,000 mg tablet extended release 24hr 1,000 mg PO QPM Qty: 30 RF: 0 Continued gabapentin 600 mg Tablet 600 mg PO TID RF: 0 meloxicam 7.5 mg Tablet 7.5 mg PO DAILY RF: 0 morphine 15 mg Tablet 15 mg PO Q4-6H PRN (Reason: Pain, Moderate) RF: 0 lisinopril 20 mg Tablet 20 mg PO DAILY RF: 0 amlodipine 5 mg Tablet 5 mg PO DAILY RF: 0 tizanidine 4 mg Tablet 4 mg Q3H RF: 0 Discontinued hydrochlorothiazide 25 mg Tablet 25 mg PO DAILY RF: 0 Other Ambulatory Orders: Basic Metabolic Panel (Stat) Timeframe: 5 Days Facility: [facility] - Location: Laboratory Ordered By: Tika Duong Follow up/Referrals: Saqib Bonner DO [Primary Care Provider] - 1 Week Diet/Activity/Treatments Diet: Diet as Tolerated, Carb-consistent/Diabetic, Low-fat, Low-sodium and Low- cholesterol Activity: Activity as tolerated Visit Report/Discharge Packet Instructions: Complications of Type 2 Diabetes, Type 2 Diabetes, DI for Hypokalemia, DI for Hyponatremia, DI for Prescription Opioid Use Discharge Data Primary Care Provider: Saqib Bonner Discharges patient from system. Discharge Date/Time: 12/24/19 09:10
--- NOTE | 2019-12-24 09:09 | PC.NURSE ---
Went over dc instructions and medications with patient, rx for new med given, lab slip given for BMP. Patient aware to call PCP for follow up appt. Patient walked to vehicle driven by spouse, patient had all belongings.
--- NOTE | 2019-12-24 14:26 | CM.DPC ---
DCP Discharge home Per MD, pt is medically stable to d/c home today with no identified barriers to discharge. Per travertine installer, pt continues to decline education or information at this time. Per RN, pt has been independent in room and no concerns at this time. Plan: Patient to d/c home with outpt follow up with his PCP and spouse to provide transport today. No SW needs at this time. MARK Maier
== END 2019-12-24 09:10 | disposition home or self-care (01) | DRG 641 ==
LOC: ED 07:32 → AC 11:11
PROVIDERS: Admitting Provider Internal Medicine; Emergency Provider Emergency Medicine; Family Provider Internal Medicine Infectious Disease; PCP Internal Medicine Infectious Disease; Referring Provider Internal Medicine; Visit Provider Internal Medicine
DX: R55 Syncope and collapse (principal); E87.1 Hypo-osmolality and hyponatremia; N17.9 Acute kidney failure, unspecified; E86.0 Dehydration; E87.6 Hypokalemia; E11.9 Type 2 diabetes mellitus without complications; I10 Essential (primary) hypertension; G89.29 Other chronic pain; Z72.0 Tobacco use; Z96.82 Presence of neurostimulator
CPT/HCPCS: 36415; 80048; 80053; 82009; 82962; 83036; 83735; 85025; 93005; 96365; 96368; 99284; G0378; J1644; J3480

== ENCOUNTER → 2019-12-30 14:55 | Outpatient (CLI) | payer OTHER, SELFPAY ==
[2019-12-22 08:44] VITALS: BMI 36.3
[2019-12-30 15:31] LABS: BUN Creatinine Ratio 18.5 (6-22); Blood Urea Nitrogen 24 mg/dL (9-20); Calcium 9.7 mg/dL (8.4-10.2); Carbon Dioxide 27 mmol/L (22-32); Chloride 98 mmol/L (98-107); Estimated Glomerular Filt Rate 57.1 mL/min (>60); Glucose 133 mg/dL (70-100); HEMOLYSIS < 15 (0-50); Potassium 4.6 mmol/L (3.4-5.1); Sodium 137 mmol/L (137-145)
== END ==
PROVIDERS: Family Provider Internal Medicine Infectious Disease; Referring Provider Internal Medicine; Visit Provider Internal Medicine
DX: E87.6 Hypokalemia (principal); E87.1 Hypo-osmolality and hyponatremia
CPT/HCPCS: 36415; 80048

== ENCOUNTER → 2020-01-10 14:49 | Outpatient (CLI) | payer OTHER, SELFPAY ==
[2019-12-22 08:44] VITALS: BMI 36.3
[2020-01-10 15:53] LABS: Blood Urea Nitrogen 12 mg/dL (9-20); Carbon Dioxide 27 mmol/L (22-32); Chloride 94 mmol/L (98-107); Estimated Glomerular Filt Rate > 60.0 mL/min (>60); Glucose 128 mg/dL (70-100); HEMOLYSIS < 15 (0-50); Potassium 4.6 mmol/L (3.4-5.1); Sodium 137 mmol/L (137-145)
== END ==
PROVIDERS: Family Provider Internal Medicine Infectious Disease; Referring Provider Internal Medicine; Visit Provider Internal Medicine
DX: E87.1 Hypo-osmolality and hyponatremia (principal)
CPT/HCPCS: 36415; 80048

== ENCOUNTER → 2021-01-20 08:48 | Outpatient (CLI) | payer OTHER, SELFPAY ==
[2019-12-22 08:44] VITALS: BMI 36.3
[2021-01-20] MEDS: COVID-19 VACC #1, MRNA(MOD) 100 MCG/0.5 ML VIAL IM (09:09)
== END ==
PROVIDERS: Family Provider Internal Medicine Infectious Disease; Visit Provider Internal Medicine
DX: Z23 Encounter for immunization (principal)
CPT/HCPCS: 0011A; 91301

== ENCOUNTER → 2021-02-17 08:31 | Outpatient (CLI) | payer OTHER, SELFPAY ==
[2019-12-22 08:44] VITALS: BMI 36.3
[2021-02-17] MEDS: COVID-19 VACC #2, MRNA(MOD) 100 MCG/0.5 ML VIAL IM (08:40)
== END ==
PROVIDERS: Family Provider Internal Medicine Infectious Disease; Visit Provider Internal Medicine
DX: Z23 Encounter for immunization (principal)
CPT/HCPCS: 0012A; 91301

== ENCOUNTER 2023-07-14 16:47 | Emergency (ER) | payer OTHER, SELFPAY ==
[2019-12-22 08:44] VITALS: BMI 36.3
[2023-07-14] VITALS (20 sets, daily range): BP systolic 133–161; BP diastolic 73–85; PULSE 109–127; RESP 12–42; TEMP 36.8; O2SAT 94–99; BMI 29.0
--- NOTE | 2023-07-14 17:26 | DI.RAD.S_ITS ---
PROCEDURE: XR CHEST 1V INDICATIONS: chest pain TECHNIQUE: One view of the chest was acquired. COMPARISON: [facility], , CHEST 2 VIEW, 10/19/2013, 20:48. FINDINGS: Surgical changes and devices: None. Lungs and pleura: Lungs are clear. No pleural effusions or pneumothorax. Mediastinum: Mediastinal contours appear normal. Heart size is normal. Bones and chest wall: No suspicious bony lesions. Overlying soft tissues appear unremarkable. IMPRESSION: No acute abnormality of the chest. Dictated by: Miguel A Ugarte M.D. on 07/14/2023 at 18:02 Approved by: Miguel A Ugarte M.D. on 07/14/2023 at 18:03
[2023-07-14 18:38] LABS: Add Manual Diff / Slide Review NO; Basophils Absolute Auto 100 /uL (0-100); Basophils Percent Auto 0.4 % (0-2); Eosinophils Absolute Auto 0 /uL (0-450); Eosinophils Percent Auto 0.2 % (2-4); Hematocrit 47.8 % (41-53); Hemoglobin 16.8 g/dL (13.5-17.5); Lymphocytes Absolute Auto 2400 /uL (1100-4500); Lymphocytes Percent Auto 17.3 % (25-40); Mean Corpuscular HGB Conc 35.1 % (30-36); Mean Corpuscular Hemoglobin 30.4 PG (26-34); Mean Corpuscular Volume 86.5 fL (80-100); Monocytes Absolute Auto 900 /uL (0-900); Monocytes Percent Auto 6.4 % (3-14); Neutrophils Absolute Auto 10500 /uL (1500-7000); Neutrophils Percent Auto 75.7 % (50-75); Platelet Count 244 X10^3/uL (150-400); Red Blood Cell Count 5.53 X10^6/uL (4.5-5.9); Red Cell Distribution Width 12.4 % (11.6-14.8); White Blood Cell Count 13.8 X10^3/uL (4.5-11.0)
[2023-07-14 18:44] LABS: INR 1.2 (0.9-1.3); Prothrombin Time 13.2 SECONDS (10.1-12.7)
[2023-07-14 18:47] LABS: PTT Partial Thromboplastin Tim 32 SECONDS (26-36)
[2023-07-14 18:49] LABS: Alanine Aminotransferase 30 IU/L (<50); Albumin 4.9 g/dL (3.5-5.0); Albumin Globulin Ratio 1.3 (1.0-2.8); Alkaline Phosphatase 120 U/L (38-126); Aspartate Aminotransferase 32 IU/L (17-59); BUN Creatinine Ratio 17.5 (6-22); Bilirubin Total 1.2 mg/dL (0.2-1.3); Blood Urea Nitrogen 14 mg/dL (9-20); Calcium 9.4 mg/dL (8.4-10.2); Carbon Dioxide 15 mmol/L (22-32); Chloride 88 mmol/L (98-107); Creatine Kinase 60 U/L (55-170); Estimated Glomerular Filt Rate > 60 mL/min (>60); Globulin 3.7 g/dL (1.7-4.1); Glucose 271 mg/dL (70-100); HEMOLYSIS < 15 (0-50); Lipase 25 U/L (23-300); Magnesium 1.7 mg/dL (1.6-2.3); Sodium 130 mmol/L (137-145); Total Protein 8.6 g/dL (6.3-8.2)
[2023-07-14 19:00] LABS: Troponin I < 0.012 ng/mL (0.01-0.034)
--- NOTE | 2023-07-14 20:15 | ED_ITS ---
HPI - General Adult General Chief complaint: Dizziness Stated complaint: Tachy Time Seen by Provider: 07/14/23 20:05 Source: patient Mode of arrival: Wheelchair History of Present Illness HPI narrative: Patient is a 57-year-old male who stated that yesterday while at work he would a fairly sudden onset of feeling like his heart was beating fast and short of breath specifically when he was trying to walk around. No real chest pain. No cough. No fevers. No abdominal pain. He states that it did improve somewhat when he was sitting down and relaxing. He slept okay last evening but today when he went to work his symptoms continued. He continues to feel like his heart is beating fast. He is no lower extremity swelling. Has never had any prior issues with his heart or lungs. Related Data Home Medications Medication Instructions Recorded Confirmed amlodipine 5 mg tablet 5 mg PO DAILY 12/22/19 12/22/19 gabapentin 600 mg tablet 600 mg PO TID 12/22/19 12/22/19 lisinopril 20 mg tablet 20 mg PO DAILY 12/22/19 07/14/23 meloxicam 7.5 mg tablet 7.5 mg PO DAILY 12/22/19 12/22/19 tizanidine 4 mg tablet 4 mg Q3H 12/22/19 12/22/19 hydrochlorothiazide 25 mg tablet 25 mg PO DAILY 07/14/23 07/14/23 morphine 30 mg tablet,extended 30 mg PO Q12H 07/14/23 07/14/23 release oxycodone 10 mg tablet 10 mg PO Q4-6H PRN Pain, Moderate 07/14/23 07/14/23 Previous Rx's Medication Instructions Recorded metformin 1,000 mg tablet,extended 1,000 mg PO QPM #30 tabs 12/24/19 release 24hr Allergies Allergy/AdvReac Type Severity Reaction Status Date / Time No Known Drug Allergies Allergy Verified 07/14/23 20:00 Review of Systems Review of Systems ROS Unobtainable: All systems reviewed & are unremarkable except as noted in HPI and below Patient History Medical History Chronic back pain Diabetes mellitus type 2 in obese Hypertension Opiate dependence Surgical History (Updated 12/22/19 @ 16:47 by Tika Duong DO) History of appendectomy History of lumbar fusion Family History (Updated 12/22/19 @ 16:49 by Tika Duong DO) Mother Diabetes mellitus Heart disease Father Diabetes mellitus Heart disease Brother Diabetes mellitus Heart disease Hx of CABG Brother Lung cancer Sister Unknown family medical history Social History household members: spouse and children Smoking Status: Never smoker alcohol intake: never Smoking Status: Never smoker alcohol intake frequency: holidays/special occasions only Substance Use Type: does not use Exam Initial Vital Signs Initial Vital Signs: Vital Signs Temperature 98.2 F 07/14/23 17:19 Pulse Rate 116 H 07/14/23 17:19 Respiratory Rate 17 07/14/23 17:19 Blood Pressure 156/78 H 07/14/23 17:19 Pulse Oximetry 99 07/14/23 17:19 Oxygen Delivery Method Room Air 07/14/23 17:19 Const General: cooperative, comfortable and No ill appearing HENMT Head: normal to inspection and normocephalic Resp Effort & Inspection: normal respiratory effort Auscultation: clear to auscultation bilaterally Cardio Rate: tachycardic Rhythm: regular rhythm GI Inspection: normal to inspection Skin General: no rashes or lesions noted Neuro General: patient alert, patient awake, patient oriented x3 and moves all extremities Extrem General: normal to inspection and capillary refill normal Psych Appearance: grossly normal and well kempt Course Orders Ordered: ED Orders 07/14/23 17:26 XR chest 1V Stat 07/14/23 18:29 EKG-12 Lead Stat 07/14/23 18:30 BNP [NT-proBNP (BNP-Adult 18+)] Stat Complete Blood Count AUTO DIFF Stat Comprehensive Metabolic Panel Stat Lipase Stat Magnesium Stat PTT Partial Thromboplastin Ezra Stat Prothrombin Time INR Stat Troponin & CK Cardiac Panel Stat 07/14/23 20:16 CT angio chest PE protocol Stat 07/14/23 21:34 Troponin & CK Cardiac Panel Stat 07/15/23 03:00 PTT Partial Thromboplastin Ezra Q6H 07/15/23 05:00 Hemoglobin and Hematocrit DAILY Platelet Count DAILY 07/15/23 09:00 PTT Partial Thromboplastin Ezra Q6H 07/15/23 15:00 PTT Partial Thromboplastin Ezra Q6H 07/16/23 05:00 Hemoglobin and Hematocrit DAILY Platelet Count DAILY Heparin Sodium/Dextrose (Heparin Drip) 25,000 unit in 500 mls @ 33.051 mls/hr IV CONT ROCHELLE; Protocol Last Admin: 07/14/23 21:12 Dose: 18 units/kg/hr, 33.051 mls/hr Documented By: AWILDA Co-signed By: CHRYSTAL Discontinued Medications Aspirin (Aspirin 81 Mg Chew Tab) 324 mg PO NOW ONE Stop: 07/14/23 17:27 Last Admin: 07/14/23 20:38 Dose: Not Given Documented By: CAN Heparin Sodium (Porcine) (Heparin 5,000 Unit/Ml Vial) 7,300 unit 80 unit/kg (7300 unit) IV NOW ONE Stop: 07/14/23 20:55 Last Admin: 07/14/23 21:21 Dose: 7,300 unit Documented By: AWILDA Hydromorphone HCl (Hydromorphone 1 Mg Inj) 1 mg IV NOW ONE Stop: 07/14/23 23:32 Last Admin: 07/14/23 23:40 Dose: 1 mg Documented By: AWILDA Ondansetron HCl (Ondansetron 4 Mg/2 Ml Inj) 4 mg IV NOW ONE Stop: 07/14/23 21:18 Last Admin: 07/14/23 21:22 Dose: 4 mg Documented By: AWILDA Ondansetron HCl (Ondansetron 4 Mg/2 Ml Inj) 4 mg IV NOW ONE Stop: 07/14/23 23:18 Last Admin: 07/14/23 23:28 Dose: 4 mg Documented By: AWILDA Vital Signs Vital signs: Vital Signs - 8 hr 07/14/23 17:19 07/14/23 19:54 07/14/23 19:56 Temperature 98.2 F Pulse Rate 116 H 116 H Respiratory Rate 17 19 18 Blood Pressure 156/78 H Pulse Oximetry 99 97 Oxygen Delivery Method Room Air 07/14/23 19:56 07/14/23 20:00 07/14/23 20:00 Temperature Pulse Rate 114 H Respiratory Rate 21 Blood Pressure 138/73 139/76 Pulse Oximetry 95 Oxygen Delivery Method 07/14/23 20:15 07/14/23 20:35 07/14/23 20:36 Temperature Pulse Rate 115 H 113 H 113 H Respiratory Rate 18 17 16 Blood Pressure Pulse Oximetry 96 97 96 Oxygen Delivery Method Room Air Room Air 07/14/23 20:36 07/14/23 20:45 07/14/23 21:00 Temperature Pulse Rate 112 H Respiratory Rate 24 Blood Pressure 161/77 H 155/84 H Pulse Oximetry 96 Oxygen Delivery Method 07/14/23 21:00 07/14/23 21:15 07/14/23 21:30 Temperature Pulse Rate 111 H 126 H Respiratory Rate 15 35 H Blood Pressure 142/78 H Pulse Oximetry 97 98 Oxygen Delivery Method 07/14/23 21:30 07/14/23 21:45 07/14/23 22:00 Temperature Pulse Rate 111 H 109 H Respiratory Rate 17 13 Blood Pressure 148/82 H Pulse Oximetry 98 97 Oxygen Delivery Method Room Air 07/14/23 22:00 07/14/23 22:15 07/14/23 22:30 Temperature Pulse Rate 109 H 109 H Respiratory Rate 19 21 Blood Pressure 149/85 H Pulse Oximetry 96 94 Oxygen Delivery Method 07/14/23 22:30 07/14/23 22:45 07/14/23 23:00 Temperature Pulse Rate 110 H 114 H Respiratory Rate 17 34 H Blood Pressure 158/77 H Pulse Oximetry 95 95 Oxygen Delivery Method 07/14/23 23:00 07/14/23 23:15 07/14/23 23:30 Temperature Pulse Rate 114 H 127 H Respiratory Rate 14 42 H Blood Pressure 133/80 Pulse Oximetry 96 96 Oxygen Delivery Method 07/14/23 23:30 07/14/23 23:45 07/15/23 00:00 Temperature Pulse Rate 116 H 114 H Respiratory Rate 22 12 Blood Pressure 135/79 Pulse Oximetry 96 95 Oxygen Delivery Method 07/15/23 00:00 07/15/23 00:15 07/15/23 00:30 Temperature Pulse Rate 111 H 110 H Respiratory Rate 17 17 Blood Pressure 135/79 Pulse Oximetry 96 92 Oxygen Delivery Method 07/15/23 00:30 Temperature Pulse Rate 111 H Respiratory Rate 14 Blood Pressure Pulse Oximetry 91 Oxygen Delivery Method Medical Decision Making Lab Data Lab results reviewed: Yes I reviewed the patient's lab results. 07/14/23 18:30 07/14/23 18:30 Labs: Lab Results 07/14/23 07/14/23 07/14/23 Range/Units 18:30 18:30 18:30 WBC 13.8 H (4.5-11.0) X10^3/uL RBC 5.53 (4.5-5.9) X10^6/uL Hgb 16.8 (13.5-17.5) g/dL Hct 47.8 (41-53) % MCV 86.5 (80-100) fL MCH 30.4 (26-34) PG MCHC 35.1 (30-36) % RDW 12.4 (11.6-14.8) % Plt Count 244 (150-400) X10^3/uL Neut % (Auto) 75.7 H (50-75) % Lymph % (Auto) 17.3 L (25-40) % Jack % (Auto) 6.4 (3-14) % Eos % (Auto) 0.2 L (2-4) % Baso % (Auto) 0.4 (0-2) % Neut # (Auto) 35660 H (2336-9871) /uL Lymph # (Auto) 2400 (7271-8051) /uL Jack # (Auto) 900 (0-900) /uL Eos # (Auto) 0 (0-450) /uL Baso # (Auto) 100 (0-100) /uL PT 13.2 H (10.1-12.7) SECONDS INR 1.2 (0.9-1.3) APTT 32 (26-36) SECONDS Sodium 130 L (137-145) mmol/L Potassium 4.0 (3.4-5.1) mmol/L Chloride 88 L (98-107) mmol/L Carbon Dioxide 15 L (22-32) mmol/L BUN 14 (9-20) mg/dL Creatinine 0.80 (0.66-1.25) mg/dL Estimated GFR > 60 (>60) mL/min BUN/Creatinine Ratio 17.5 (6-22) Glucose 271 H (70-100) mg/dL Calcium 9.4 (8.4-10.2) mg/dL Magnesium 1.7 (1.6-2.3) mg/dL Total Bilirubin 1.2 (0.2-1.3) mg/dL AST 32 (17-59) IU/L ALT 30 (<50) IU/L Alkaline Phosphatase 120 (38-126) U/L Total Creatine Kinase 60 (55-170) U/L Troponin I < 0.012 (0.01-0.034) ng/mL NT-Pro-B Natriuret Pep (<125) pg/mL Total Protein 8.6 H (6.3-8.2) g/dL Albumin 4.9 (3.5-5.0) g/dL Globulin 3.7 (1.7-4.1) g/dL Albumin/Globulin Ratio 1.3 (1.0-2.8) Lipase 25 (23-300) U/L 07/14/23 07/14/23 Range/Units 18:30 21:34 WBC (4.5-11.0) X10^3/uL RBC (4.5-5.9) X10^6/uL Hgb (13.5-17.5) g/dL Hct (41-53) % MCV (80-100) fL MCH (26-34) PG MCHC (30-36) % RDW (11.6-14.8) % Plt Count (150-400) X10^3/uL Neut % (Auto) (50-75) % Lymph % (Auto) (25-40) % Jack % (Auto) (3-14) % Eos % (Auto) (2-4) % Baso % (Auto) (0-2) % Neut # (Auto) (9608-1998) /uL Lymph # (Auto) (6807-8378) /uL Jack # (Auto) (0-900) /uL Eos # (Auto) (0-450) /uL Baso # (Auto) (0-100) /uL PT (10.1-12.7) SECONDS INR (0.9-1.3) APTT (26-36) SECONDS Sodium (137-145) mmol/L Potassium (3.4-5.1) mmol/L Chloride (98-107) mmol/L Carbon Dioxide (22-32) mmol/L BUN (9-20) mg/dL Creatinine (0.66-1.25) mg/dL Estimated GFR (>60) mL/min BUN/Creatinine Ratio (6-22) Glucose (70-100) mg/dL Calcium (8.4-10.2) mg/dL Magnesium (1.6-2.3) mg/dL Total Bilirubin (0.2-1.3) mg/dL AST (17-59) IU/L ALT (<50) IU/L Alkaline Phosphatase (38-126) U/L Total Creatine Kinase 49 L (55-170) U/L Troponin I < 0.012 (0.01-0.034) ng/mL NT-Pro-B Natriuret Pep 4150 H (<125) pg/mL Total Protein (6.3-8.2) g/dL Albumin (3.5-5.0) g/dL Globulin (1.7-4.1) g/dL Albumin/Globulin Ratio (1.0-2.8) Lipase (23-300) U/L Imaging Data Chest x-ray: Radiologist's Impression: PROCEDURE:? XR CHEST 1V ? INDICATIONS:? chest pain ? TECHNIQUE:? One view of the chest was acquired.? ? COMPARISON:? [facility], CHEST 2 VIEW, 10/19/2013, 20:48. ? FINDINGS:? ? Surgical changes and devices:? None.? ? Lungs and pleura:? Lungs are clear.? No pleural effusions or pneumothorax.? ? Mediastinum:? Mediastinal contours appear normal.? Heart size is normal.? ? Bones and chest wall:? No suspicious bony lesions.? Overlying soft tissues appear unremarkable.? ? ? IMPRESSION:? No acute abnormality of the chest. CT scan - chest: Radiologist's Impression: PROCEDURE:? CT ANGIO CHEST PE PROTOCOL ? INDICATIONS:? Chest pain, shortness of breath, tachycardia ? TECHNIQUE:? After the administration of intravenous contrast, 2 mm thick sections acquired from the pulmonary apices to the posterior costophrenic angles.? 3-dimensional maximum intensity projection (MIP) coronal and sagittal reformats were then acquired through the thorax.? For radiation dose reduction, the following was used:? automated exposure c ontrol, adjustment of mA and/or kV according to patient size.? ? COMPARISON:? [facility], XR CHEST 1V, 07/14/2023, 17:48. ? FINDINGS:? Image quality:? There is streak artifact seen through the level of the shoulders.? Height ? Pulmonary arteries:? Extensive pulmonary emboli can be seen, including a saddle embolism across the main branch point between the right and left pulmonary arteries.? Proximal pulmonary emboli can be seen involving the left upper lobe, left lower lobe, right lower lobe, right middle lobe, with a mild burden of pulmonary embolism involving the right upper lobe.? The pulmonary arteries are not frankly enlarged. ? Lungs and pleura:? Mild ground-glass opacity can be seen involving the anterior lingula.? No pleural effusions or pneumothorax.? Central and peripheral airways are patent.? ? Mediastinum:? The right heart is enlarged compared to the left.? No pericardial effusion is seen.? No mediastinal or hilar adenopathy.? Thoracic aorta is normal in caliber and enhancement.? Esophagus is normal in caliber, without hiatal hernia.? ? Bones and chest wall:? No suspicious bony lesions.? Ribs and thoracic spine appear intact throughout.? Mild pectus excavatum deformity is seen.? A thoracic spine stimulator can be seen along the posterior aspect of the thecal sac.? Age-appropriate bony degenerative changes are seen.? Accentuated thoracic kyphosis is seen. ? Thyroid gland demonstrates no significant abnormality.? No axillary or supraclavicular adenopathy.? ? Abdomen:? Visualized upper abdominal solid organs appear normal in the early arterial phase of enhancement.? IMPRESSION:? A large burden of bilateral pulmonary emboli can be seen, including a saddle embolism across the main branch point between the right and left pulmonary arteries. ? Right heart strain can be seen, with the right ventricle larger than the left ventricle. ? There is mild ground-glass opacity seen involving the anterior lingula.? This is nonspecific, although please consider atelectasis versus mild infection. ? ? ? Additional findings:? Mild pectus excavatum deformity? Thoracic spine stimulator ? ? Note:? Critical finding of pulmonary embolism discussed by telephone with Dr. Ashby at 7:49 p.m. [place] time on July 14, 2023.?? ECG Data Attestation: I personally reviewed and interpreted this ECG as follows: Interpretation: Sinus tachycardia Ventricular rate of 114 Normal axis Normal QRS No ST T wave changes MDM Narrative Medical decision making narrative: Patient was not hypoxic. Not tachypneic. Not hypotensive. Is tachycardic. Is having dyspnea on exertion. Low suspicion for pneumonia. CT scan shows bilateral pulmonary embolism/saddle embolism. He is never had any issues like this in the past. Patient was started on heparin. I did inform the patient of the findings of the CT scan. I discussed the case with Dr. Seo with Interventional Cardiology at [facility]. He stated that the patient could potentially be a candidate for catheter directed tPA/retrieval given his tachycardia and also his elevated BNP. He recommended the patient be transferred for echocardiogram in the morning and re-evaluation. I then discuss the case with Dr. Araiza hospitalist at [facility] who accepts the patient for transfer. Patient is stable for transport. Critical Care Time Critical Care Time Critical Care Time: Yes Total Critical Care Time: 35 Attestation: The high probability of a clinically significant, sudden or life threatening deterioration of the [cardiovascular/respiratory] system(s) required my full and direct attention, intervention and personal management. The aggregate critical care time was [35] minutes. This time is in addition to time spent performing reported procedures but includes the following: [x] Data Review and interpretation [x] Patient assessment and monitoring of vital signs [x] Documentation [x] Medication orders and management Discharge Plan Departure Patient Disposition: [facility] Clinical Impression: Pulmonary embolism Prescriptions: No Action gabapentin 600 mg Tablet 600 mg PO TID meloxicam 7.5 mg Tablet 7.5 mg PO DAILY lisinopril 20 mg Tablet 20 mg PO DAILY amlodipine 5 mg Tablet 5 mg PO DAILY tizanidine 4 mg Tablet 4 mg Q3H metformin 1,000 mg tablet extended release 24hr 1,000 mg PO QPM Qty: 30 0RF hydrochlorothiazide 25 mg tablet 25 mg PO DAILY morphine 30 mg tablet extended release 30 mg PO Q12H oxycodone 10 mg tablet 10 mg PO Q4-6H PRN (Reason: Pain, Moderate)
--- NOTE | 2023-07-14 20:16 | DI.CT.S_ITS ---
PROCEDURE: CT ANGIO CHEST PE PROTOCOL INDICATIONS: Chest pain, shortness of breath, tachycardia TECHNIQUE: After the administration of intravenous contrast, 2 mm thick sections acquired from the pulmonary apices to the posterior costophrenic angles. 3-dimensional maximum intensity projection (MIP) coronal and sagittal reformats were then acquired through the thorax. For radiation dose reduction, the following was used: automated exposure control, adjustment of mA and/or kV according to patient size. COMPARISON: [facility], CR, XR CHEST 1V, 07/14/2023, 17:48. FINDINGS: Image quality: There is streak artifact seen through the level of the shoulders. Height Pulmonary arteries: Extensive pulmonary emboli can be seen, including a saddle embolism across the main branch point between the right and left pulmonary arteries. Proximal pulmonary emboli can be seen involving the left upper lobe, left lower lobe, right lower lobe, right middle lobe, with a mild burden of pulmonary embolism involving the right upper lobe. The pulmonary arteries are not frankly enlarged. Lungs and pleura: Mild ground-glass opacity can be seen involving the anterior lingula. No pleural effusions or pneumothorax. Central and peripheral airways are patent. Mediastinum: The right heart is enlarged compared to the left. No pericardial effusion is seen. No mediastinal or hilar adenopathy. Thoracic aorta is normal in caliber and enhancement. Esophagus is normal in caliber, without hiatal hernia. Bones and chest wall: No suspicious bony lesions. Ribs and thoracic spine appear intact throughout. Mild pectus excavatum deformity is seen. A thoracic spine stimulator can be seen along the posterior aspect of the thecal sac. Age-appropriate bony degenerative changes are seen. Accentuated thoracic kyphosis is seen. Thyroid gland demonstrates no significant abnormality. No axillary or supraclavicular adenopathy. Abdomen: Visualized upper abdominal solid organs appear normal in the early arterial phase of enhancement. IMPRESSION: A large burden of bilateral pulmonary emboli can be seen, including a saddle embolism across the main branch point between the right and left pulmonary arteries. Right heart strain can be seen, with the right ventricle larger than the left ventricle. There is mild ground-glass opacity seen involving the anterior lingula. This is nonspecific, although please consider atelectasis versus mild infection. Additional findings: Mild pectus excavatum deformity Thoracic spine stimulator Note: Critical finding of pulmonary embolism discussed by telephone with Dr. Ashby at 7:49 p.m. [place] time on July 14, 2023. Dictated by: Malik Edmondson M.D. on 07/14/2023 at 19:45 Approved by: Malik Edmondson M.D. on 07/14/2023 at 19:50
[2023-07-14 20:40] LABS: NT-proBNP (BNP-Adult 18+) 4150 pg/mL (<125)
[2023-07-14] MEDS: HEPARIN DRIP 25,000 UNIT/500 ML IV.SOLN 33.051 UNIT IV (21:12)
[2023-07-14] MEDS: HEPARIN 5,000 UNIT/ML VIAL 7300 UNIT IV (21:21)
[2023-07-14] MEDS: ONDANSETRON 4 MG/2 ML INJ IV ×2 (21:22→23:28)
[2023-07-14 21:51] LABS: Creatine Kinase 49 U/L (55-170)
[2023-07-14 22:04] LABS: Troponin I < 0.012 ng/mL (0.01-0.034)
[2023-07-14] MEDS: HYDROMORPHONE 1 MG INJ IV (23:40)
[2023-07-15] VITALS (8 sets, daily range): BP systolic 135–144; BP diastolic 77–83; PULSE 109–112; RESP 13–18; O2SAT 91–96
[2023-07-15] MEDS: HYDROMORPHONE 1 MG INJ IV (01:45)
--- NOTE | 2023-08-07 09:56 | PC.NURSE ---
late entry- patient was transported with Heparin drip running per RN.
== END 2023-07-15 02:00 | disposition short-term general hospital (02) ==
PROVIDERS: Emergency Medicine; Emergency Provider Emergency Medicine; Family Provider Internal Medicine Infectious Disease
DX: I26.99 Other pulmonary embolism without acute cor pulmonale (principal); R00.0 Tachycardia, unspecified; R07.9 Chest pain, unspecified
CPT/HCPCS: 36415; 71045; 71275; 80053; 82550; 83690; 83735; 83880; 84484; 85025; 85610; 85730; 93005; 93010; 96365; 96366; 96375; 96376; 99284; 99291; J1170; J1644; J2405; Q9967

== ENCOUNTER → 2024-02-09 13:03 | Outpatient (CLI) | payer OTHER, SELFPAY ==
[2019-12-22 08:44] VITALS: BMI 36.3
== END ==
PROVIDERS: Family Provider Internal Medicine Infectious Disease; Referring Provider Nurse Practitioner Family; Visit Provider Physician Assistant
DX: E11.621 Type 2 diabetes mellitus with foot ulcer (principal); L97.522 Non-pressure chronic ulcer of other part of left foot with fat layer exposed; L84 Corns and callosities; E11.42 Type 2 diabetes mellitus with diabetic polyneuropathy; I10 Essential (primary) hypertension; M79.672 Pain in left foot
CPT/HCPCS: 11042; 87070; 87075; 87205; 99203; 99214

== ENCOUNTER → 2024-02-09 14:46 | Outpatient (CLI) | payer OTHER, SELFPAY ==
[2019-12-22 08:44] VITALS: BMI 36.3
--- NOTE | 2024-02-09 14:48 | DI.RAD.S_ITS ---
PROCEDURE: XR FOOT LT MIN 3V INDICATIONS: non-healing ulcer on left lateral 5th met head and heel TECHNIQUE: 3 views of the foot were acquired. COMPARISON: None. FINDINGS: Bones: No fractures or dislocations. Well-defined plantar and dorsal calcaneal enthesophytes are seen. [id number] hallux valgus and mild midfoot and forefoot joint osteoarthritic changes are seen. No gross bony erosive changes are seen. No suspicious bony lesions. Soft tissues: Open wound over lateral aspect of 5th MTP joint is seen. No tibiotalar joint effusion. Achilles tendon appears normal. IMPRESSION: [id number] hallux valgus. Mild osteoarthritic changes in midfoot and forefoot joints. No fracture or dislocation. Well-defined calcaneal enthesophytes. Ulceration over lateral aspect of forefoot. No radiographic evidence of osteomyelitis. Dictated by: Bjorn Diehl M.D. on 02/09/2024 at 16:00 Approved by: Bjorn Diehl M.D. on 02/09/2024 at 16:01
== END ==
PROVIDERS: Family Provider Internal Medicine Infectious Disease; Referring Provider Physician Assistant; Visit Provider Physician Assistant
DX: E11.621 Type 2 diabetes mellitus with foot ulcer (principal); L97.522 Non-pressure chronic ulcer of other part of left foot with fat layer exposed; E11.42 Type 2 diabetes mellitus with diabetic polyneuropathy; M20.12 Hallux valgus (acquired), left foot; M77.32 Calcaneal spur, left foot; L84 Corns and callosities; I10 Essential (primary) hypertension; M79.672 Pain in left foot
CPT/HCPCS: 11042; 73630; 87070; 87205

== ENCOUNTER → 2024-02-16 14:23 | Outpatient (CLI) | payer OTHER, SELFPAY ==
[2019-12-22 08:44] VITALS: BMI 36.3
== END ==
LOC: WC 14:24
PROVIDERS: Family Provider Internal Medicine Infectious Disease; Visit Provider Physician Assistant
DX: E11.621 Type 2 diabetes mellitus with foot ulcer (principal); L97.522 Non-pressure chronic ulcer of other part of left foot with fat layer exposed; L84 Corns and callosities; E11.42 Type 2 diabetes mellitus with diabetic polyneuropathy; I10 Essential (primary) hypertension; M20.12 Hallux valgus (acquired), left foot; M19.072 Primary osteoarthritis, left ankle and foot
CPT/HCPCS: 11042; 99213